=== PATIENT | female | born 1970 | race Caucasian/White ===

== ENCOUNTER 2022-06-09 12:50 | Emergency (ER) | payer OTHER, SELFPAY ==
--- NOTE | ~2022-06-09 | CT_ITS ---
EXAMINATION: CT abdomen pelvis w con DATE: 06/09/2022 14:33 INDICATION: Lower abdominal pain. Status post abdominoplasty. Pain and foul-smelling at the surgical site with some drainage. TECHNIQUE: Computed tomography (CT) of the abdomen and pelvis was performed with 100 CC Omnipaque 350 intravenous contrast. Automated exposure control and iterative reconstruction technique were employe d. Exam dose: 563.63 mGy-cm total exam DLP. COMPARISON: None. FINDINGS: Status post abdominoplasty. There is an abscess with approximately 3.5 mm thick wall of the lower anterior abdominal and pelvic wall measuring up to 8.9 cm transverse, 3 cm AP and 12.2 cm vert ical dimension. There is surrounding soft tissue infiltration of the adipose tissue consistent with a djacent inflammatory change. The lung bases are clear. Normal heart size. No pericardial or pleural effusion. Status post cholecystectomy. Peripheral interrupted puddling contrast enhancement of a probable 1.6 cm hemangioma at the posterior aspect of the upper right hepatic lobe. No other hepatic space-occupying mass lesion is evident. Nor mal splenic size. No pancreatic mass lesion, calcification or ductal dilatation. Normal morphology of the adrenal glands. No renal mass lesion or urinary tract calculus or hydroureteronephrosis is detected. The urinary blad barbara is unremarkable. The uterus appears to be surgically absent. Small sliding hiatal hernia. Status post gastric stapling procedure. No bowel obstruction or intraper itoneal free air. Included skeletal structures are unremarkable. IMPRESSION: Lower anterior abdominal and pelvic wall 3 x 8.9 x 12.2 cm abscess cavity post abdominop lasty Reviewed, dictated and finalized at [facility]. Reviewed, dictated and finalized at [facility]. IMPRESSION: Lower anterior abdominal and pelvic wall 3 x 8.9 x 12.2 cm abscess cavity post abdominoplasty
[2022-06-09 12:54] VITALS: BP 142/74; PULSE 98; RESP 18; TEMP 37; O2SAT 100
[2022-06-09 12:56] VITALS: BP 136/78; PULSE 85; RESP 18; TEMP 37.2; O2SAT 96
[2022-06-09 13:15] VITALS: BP 121/76; PULSE 91; O2SAT 95
--- NOTE | 2022-06-09 13:21 | ED.RECABL ---
HPI - Recheck/Abnormal Lab/Rx General Chief Complaint: Recheck/Abnormal Lab/Rx Stated Complaint: Post Op Complication Time Seen by Provider: 06/09/22 13:09 History of Present Illness HPI narrative: 52-year-old female history of migraines presented the emergency room for evaluation of lower abdominal pain. Patient states that she had abdominoplasty 6 weeks ago [id number]. States that she had not been experiencing any symptoms until last weekend. Patient noted purulent drainage from her incision site increased swelling, redness and worsening pain. Patient was sent here by her PCP for further evaluation. Patient admits to completing course of amoxicillin following her procedure. Related Data Allergies Allergy/AdvReac Type Severity Reaction Status Date / Time butalbital Allergy Severe Hives / Verified 06/09/22 13:03 Red Face sumatriptan Allergy Severe Hives / Verified 06/09/22 13:03 Red Face Review of Systems Review of Systems: CONSTITUTIONAL: Denies fever, chills, or sweats. EYES: Denies visual changes, redness, or discharge. ENT: Denies rhinorrhea, congestion, sore throat, or otalgia. CARDIOVASCULAR: Denies chest pain, palpitations, or edema. RESPIRATORY: Denies cough or dyspnea. GASTROINTESTINAL: Reports lower abdominal pain GENITOURINARY: Denies dysuria or hematuria. SKIN: Denies rash or itching. MUSCULOSKELETAL: Denies back pain, joint pain, or myalgia. NEUROLOGIC: Denies headache, numbness, dizziness, or weakness. PSYCHIATRIC: Denies anxiety or depression. Exam Narrative: GENERAL: Well-appearing, well-nourished, no physical limitations, and in no acute distress. HEAD: Normocephalic, atraumatic. EYES: Conjunctivae normal, PERRLA and EOMI. CHEST: Clear to auscultation. No respiratory distress. No wheezes rales or rhonchi. HEART: Regular rate and rhythm. No murmur heard. Normal peripheral pulses. ABDOMEN: Soft, lower abdominal tenderness, nondistended, normal active bowel sounds. Abdominal binder in place BACK: No CVA tenderness; No cervical/thoracic/lumbar tenderness, step-offs, bony abnormality; FROM EXTREMITIES: Normal range of motion. No edema. No clubbing or cyanosis SKIN: Well approximated longitudinal surgical scar to the lower abdomen scant amount of dried purulent drainage noted. Area is tender to palpation with minimal swelling. No signs of lymphangitic spread NEURO: No focal deficits. Alert and oriented x3. MAEW. CN's II-XI intact bilaterally, normal gait PSYCH: Cooperative. Normal mood and affect. Course Vital Signs Vital signs: Vital Signs Temperature 37.0 C 06/09/22 12:54 Pulse Rate 98 06/09/22 12:54 Respiratory Rate 18 06/09/22 12:54 Blood Pressure 142/74 H 06/09/22 12:54 Pulse Oximetry 100 06/09/22 12:54 Oxygen Delivery Room Air 06/09/22 12:54 Temperature 37.2 C 06/09/22 12:56 Pulse Rate 79 06/09/22 14:15 Respiratory Rate 18 06/09/22 12:56 Blood Pressure 114/64 06/09/22 14:15 Pulse Oximetry 99 06/09/22 14:15 Oxygen Delivery Room Air 06/09/22 12:56 MDM - Recheck/Abnormal Lab/Rx MDM Narrative Medical decision making narrative: 52-year-old female presented to the emergency room for evaluation of a possible abdominal wall abscess following an abdominoplasty 6 weeks ago. Lab work and looked reassuring. CT scan showed a 12 x 3 x [address] Wyman was consulted, he believes this is a seroma not an abscess given the patient's lab work-up and condition on exam. is requesting patient follow-up with him in his office tomorrow. Lab Data Result diagrams: 06/09/22 13:38 06/09/22 13:38 Labs: Lab Results 06/09/22 06/09/22 06/09/22 Range/Units 13:38 13:38 13:38 WBC 6.9 (4.5-10.0) K/mm3 RBC 3.58 L (4.2-5.4) M/mm3 Hgb 11.4 L (12.0-15.0) g/dL Hct 34.1 L (37.0-47.0) % MCV 95.3 (80-100) fl MCH 31.8 (26-34) pg MCHC 33.4 (32-36) g/dl RDW 12.1 (11.5-14.5)
[2022-06-09] MEDS: SODIUM CHLORIDE 0.9% IV 1,000 ML 999 ML IV CONT (13:46)
[2022-06-09 13:50] LABS: Basophils Percent Auto 0.3 % (0.2-1.2); Hematocrit 34.1 % (37.0-47.0); Hemoglobin 11.4 g/dL (12.0-15.0); Immature Granulocyte Absolute 0.02 K/mm3 (0.00-0.031); Immature Granulocyte Percent A 0.3 % (0-0.5); Lymphocytes Absolute Auto 1.02 K/mm3 (0.9-3.2); Lymphocytes Percent Auto 14.8 % (18.3-44.2); Mean Corpuscular HGB Conc 33.4 g/dl (32-36); Mean Corpuscular Hemoglobin 31.8 pg (26-34); Mean Corpuscular Volume 95.3 fl (80-100); Mean Platelet Volume 10.3 fl (7.4-10.4); Monocytes Absolute Auto 0.5 K/mm3 (0.1-0.6); Monocytes Percent Auto 7.7 % (2.6-8.5); Neutrophils Absolute Auto 5.3 K/mm3 (1.3-6.7); Neutrophils Percent Auto 76.9 % (45.5-73.1); Platelet Count Result 224 k/mm3 (150-375); Red Blood Count 3.58 M/mm3 (4.2-5.4); Red Cell Distribution Width 12.1 % (11.5-14.5); White Blood Count 6.9 K/mm3 (4.5-10.0)
[2022-06-09 13:59] LABS: Lactic Acid Reflex 0.8 mmol/L (0.7-2.0)
[2022-06-09 14:00] LABS: Alanine Aminotransferase 17 U/L (6-35); Albumin Level 3.6 g/dL (3.5-5.1); Alkaline Phosphatase 80 U/L (38-126); Anion Gap 13 mmol/L (8-16); Aspartate Amino Transferase 19 U/L (14-36); Bilirubin,Total 0.6 mg/dL (0.2-1.3); Blood Urea Nitrogen 14 mg/dL (7-17); Calcium 8.4 mg/dL (8.4-10.2); Carbon Dioxide 28 mmol/L (22-30); Chloride 100 mmol/L (98-107); Estimated CRCL calculation 70 ml/min; Estimated Glomerular Filt Rate > 60; Glucose 103 mg/dL (65-110); Potassium 3.6 mmol/L (3.4-5.0); Sodium 141 mmol/L (137-145)
[2022-06-09 14:08] LABS: Add Urine Microscopic? YES; Appearance Urine Clear (Clear); Bilirubin Urine Negative (Negative); Blood Urine 1+ (Negative); Color Urine Yellow (Yellow); Glucose Urine UA Negative (Negative); Ketones Urine Negative (Negative); Leukocyte Esterase Ur Negative LEU/UL (Negative); Mucus Urine Rare /lpf; Nitrate Urine Negative (Negative); Protein Urine Negative (Negative); Specific Grav Ur 1.012 (1.001-1.035); Squamous Epithelial Cell Urine Rare /hpf (Few); Urobilinogen Urine Negative mg/dL (<2.0); WBC Urine 0-3 /hpf
[2022-06-09 14:15] VITALS: BP 114/64; PULSE 79; O2SAT 99
--- NOTE | 2022-06-09 17:01 | WPDCN ---
Assessment and Plan Assessment and plan (1) Seroma after procedure: Status: Acute Assessment and Plan: She states she feels well. She would like proceed with aspiration. This was tolerated well. I see no signs of infection. This does appear to be a seroma. I am going to see her in office tomorrow to re-evaluate. She will call with any questions or concerns. Today we had a lengthy discussion about her options. CT scan was reviewed which does show evidence of abscess however there are postoperative changes 6 weeks after previous abdominoplasty. Superficially no signs of infection. She is feeling very well with no complaints other than fullness and some discomfort. We discussed surgical drainage verses attempted aspiration today. Risks, benefits, alternatives were discussed in extensive detail. I want her to be very realistic about the risks involved as well as expectations. She understands I may not be able to identify the source today and abscess may be missed She may ultimately need surgery. She understands there is always risk of intestine and other structure in injury. This was a lengthy open-ended conversation making sure answered all of her questions today. She voiced a clear understanding. Consent was obtained. She tolerated the procedure well. We were able to obtain some straw-colored fluid. She understands that does not rule out abscess elsewhere however given afebrile, normal white count, and that she has no real complaints other than fullness; she would like to go home and follow up with us tomorrow. I think this is reasonable. She knows how to get hold of us. Call with any questions or concerns in the meantime. She understands if she begins to feel ill, redness, increasing swelling, or any other concern please reach out immediately or proceed to the ER. Today's visit including review of records, evaluation, and charting was 50 minutes in addition to procedure time. (2) History of abdominoplasty: Code(s): Z98.890 - Other specified postprocedural states Status: Acute HPI Data of Consult Date/Time: 06/09/22 17:01 Primary Care Provider: PHYSICIAN NOT ON STAFF Consult Narrative Reason for consult: Swelling after abdominoplasty Narrative: Georgina Hernandez is a 52 year old female Who presented to the emergency room after having abdominal plasty completed in my [facility] 6 weeks ago. She noticed significant swelling of her lower abdomen over last several days. No fevers or chills. No nausea vomiting. No shortness of breath. No chest pain. Overall she feels very well. She came to the ER for evaluation. Labs were obtained as well as CT scan. The CT scan shows: IMPRESSION:? Lower anterior abdominal and pelvic wall 3 x 8.9 x 12.2 cm abscess cavity post abdominoplasty She states she is somewhat surprised that she feels fine other than the pressure. Review of Systems Review of Systems: All systems reviewed & are unremarkable except as noted in HPI and below Meds Home Medications and Allergies Allergies Allergy/AdvReac Type Severity Reaction Status Date / Time butalbital Allergy Severe Hives / Verified 06/09/22 13:03 Red Face sumatriptan Allergy Severe Hives / Verified 06/09/22 13:03 Red Face Vital Signs Vital Signs - 24 hr 06/09/22 12:54 06/09/22 12:56 06/09/22 13:15 Temperature 37.0 C 37.2 C Pulse Rate 98 85 91 Respiratory Rate 18 18 Blood Pressure 142/74 H 136/78 121/76 Pulse Oximetry 100 96 95 Oxygen Delivery Room Air Room Air 06/09/22 14:15 Temperature Pulse Rate 79 Respiratory Rate Blood Pressure 114/64 Pulse Oximetry 99 Oxygen Delivery Exam Narrative: Alert and oriented no obvious distress Respiratory on labored Abdomen has some lower abdominal fullness. Otherwise healing well. I see no signs of infection. No hematoma. No seroma. She does have some dry eschar at the T-junction of her scar as well as periumbilical. No
== END 2022-06-09 17:26 | disposition home or self-care (01) ==
PROVIDERS: Emergency Provider Nurse Practitioner Family
DX: T81.49XA Infection following a procedure, other surgical site, initial encounter (principal); L02.211 Cutaneous abscess of abdominal wall; Y83.8 Other surgical procedures as the cause of abnormal reaction of the patient, or of later complication, without mention of misadventure at the time of the procedure; Z98.84 Bariatric surgery status
CPT/HCPCS: 36415; 74177; 80053; 81001; 83605; 85025; 87070; 87147; 87181; 87186; 87205; 96361; 96365; 99284; J2543; J7030; Q9967